=== PATIENT | female | born 1945 | race Caucasian/White ===

== ENCOUNTER 2023-05-02 16:29 | Inpatient (IN) | payer MEDICARE ==
[~2023-05-02 16:29] MED LIST: Iopamidol 370 76% 100 ML VIAL ONE
[2023-05-02] MEDS ORDERED: Magnesium 2 GM/50 ML BAG (IN WATER) ONE (16:49)
[2023-05-02 16:59] LABS: #Basophils 0.1 10x3/uL (0.0-0.2); #Eosinphils 0.4 10x3/uL (0.0-0.5); #Monocytes 0.8 10x3/uL (0.0-1.1); #Neutrophils 11.3 10x3/uL (1.5-8.4); %Basophils 0.4 % (0.0-2.0); %Eosinophils 2.9 % (0.0-6.0); %Lymphocytes 12.7 % (18.0-47.0); %Monocytes 5.2 % (0.0-10.0); %Neutrophils 78.3 % (40.0-75.0); Hemoglobin 13.5 g/dL (12.0-15.5); Mean Corpuscular HGB CONC 33.8 g/dL (32.0-36.0); Mean Corpuscular Hemoglobin 29.1 pg (27.0-33.0); Mean Corpuscular Volume 86.2 fl (81.6-98.3); Mean Platelet Volume 9.1 fl (7.4-10.4); Platelet Count 469 10x3/uL (150-450); RBC Distribution Width 12.6 % (11.5-14.5); Red Blood Cell (RBC) Count 4.64 10x6/uL (3.90-5.03); White Blood Cell (WBC) Count 14.5 10x3/uL (3.5-10.5)
[2023-05-02 17:20] LABS: ALT (SGPT) 13 U/L (8-55); AST (SGOT) 15 U/L (5-34); Albumin 4.2 g/dL (3.4-4.8); Alkaline Phosphatase 95 U/L (40-110); Anion Gap 15 mmol/L (10-20); BUN (Urea Nitrogen) 8 mg/dL (9.8-20.1); Bilirubin, Total 0.3 mg/dL (0.2-1.2); Calc. Creatinine Clearance 0 mL/min (70-130); Calcium 9.2 mg/dL (7.8-10.44); Carbon Dioxide 23 mmol/L (23-31); Chloride 103 mmol/L (98-107); Estimated GFR 65; Globulin 2.9 g/dL (2.4-3.5); Glucose 166 mg/dL (83-110); Potassium 3.8 mmol/L (3.5-5.1); Protein, Total 7.1 g/dL (5.8-8.1); Sodium 137 mmol/L (136-145)
[2023-05-02 17:28] LABS: SARS-CoV-2 NAA Rapid Test Not Detected (NotDetected)
[2023-05-02 17:45] LABS: CKMB 3.2 ng/mL (0-6.6)
[2023-05-02] MEDS ORDERED: Aspirin Chewable 81 MG TAB ONE (17:59)
[2023-05-02] MEDS ORDERED: Azithromycin 500 MG VIAL ONE (19:05)
[2023-05-02] MEDS ORDERED: Ondansetron PF 4 MG/2 ML Vial IVP PRN (19:09)
[2023-05-02] MEDS ORDERED: Guaifenesin DM 100-10/5 ML UDCUP PO PRN (19:09)
[2023-05-02] MEDS ORDERED: Acetaminophen 325 MG TAB PO PRN (19:09)
[2023-05-02] MEDS ORDERED: Senokot S 8.6-50 MG TAB PO PRN (19:09)
[2023-05-02] MEDS ORDERED: Calcium Carbonate 500 MG ChewTAB PO PRN (19:09)
[2023-05-02] MEDS ORDERED: Magnesium 2 GM/50 ML(in water) 2 GM in Premix Bag 1 BAG IVPB SCH (19:15)
[2023-05-02 19:47] LABS: Lactic Acid 2.5 mmol/L (0.5-2.2)
[2023-05-02] MEDS ORDERED: cefTRIAXone (ROCEPHIN) 1 GM VIAL ONE (20:09)
[2023-05-02] MEDS ORDERED: Zolpidem Tartrate 5 MG TAB PO PRN (21:00)
[2023-05-02 23:40] LABS: CKMB 3.4 ng/mL (0-6.6)
[2023-05-02] MEDS ORDERED: guaiFENesin ER 600 MG TAB PO SCH (23:45)
[2023-05-03 00:10] VITALS: BMI 27.1
[2023-05-03] MEDS: Metoprolol Tartrate 25 MG TAB PO SCH ×3 (00:14→20:36)
[2023-05-03] MEDS: Benzonatate 100 MG CAP PO SCH ×4 (00:15→20:36)
[2023-05-03] MEDS: Ipratropium/Albuterol 3 ML NEB NEB SCH ×5 (02:35→23:29)
[2023-05-03 05:09] LABS: #Monocytes 0.3 10x3/uL (0.0-1.1); #Neutrophils 6.6 10x3/uL (1.5-8.4); %Basophils 0.1 % (0.0-2.0); %Lymphocytes 11.9 % (18.0-47.0); %Neutrophils 83.4 % (40.0-75.0); Hemoglobin 12.4 g/dL (12.0-15.5); Mean Corpuscular HGB CONC 33.7 g/dL (32.0-36.0); Mean Corpuscular Hemoglobin 29.3 pg (27.0-33.0); Mean Platelet Volume 9.3 fl (7.4-10.4); Platelet Count 431 10x3/uL (150-450); RBC Distribution Width 12.8 % (11.5-14.5); Red Blood Cell (RBC) Count 4.23 10x6/uL (3.90-5.03)
[2023-05-03 05:22] LABS: Anion Gap 16 mmol/L (10-20); BUN (Urea Nitrogen) 7 mg/dL (9.8-20.1); Calc. Creatinine Clearance 71 mL/min (70-130); Calcium 9.1 mg/dL (7.8-10.44); Carbon Dioxide 24 mmol/L (23-31); Chloride 103 mmol/L (98-107); Estimated GFR 84; Glucose 143 mg/dL (83-110); Potassium 4.6 mmol/L (3.5-5.1); Sodium 138 mmol/L (136-145)
[2023-05-03 05:41] LABS: CKMB 3.6 ng/mL (0-6.6)
[2023-05-03] MEDS: methylPREDNISolone Sod Succ 40 MG VIAL IVP SCH ×2 (06:58→18:01)
[2023-05-03] MEDS: Mometasone/Formoterol 200/5 60 PUFF INH SCH ×2 (07:00→19:25)
[2023-05-03 08:14] LABS: Legionella Urinary Ag Negative (Negative); Strep pneumo Urine Ag NEGATIVE (NEGATIVE)
[2023-05-03] MEDS: Cefepime 2 GM in Sodium Chloride 0.9% 100 ML IVPB SCH ×2 (11:55→20:35)
[2023-05-03] MEDS: Aspirin 81 mg Enteric Coated Tablet PO SCH (12:02)
[2023-05-03] MEDS: guaiFENesin ER 600 MG TAB PO SCH ×2 (12:02→20:36)
[2023-05-03] MEDS: Citalopram 20 MG TAB PO SCH (12:02)
[2023-05-03] MEDS: Multivitamin W/ Minerals 1 TAB PO SCH (12:03)
[2023-05-03 12:53] LABS: Hemoglobin A1c 5.8 % (4.0-6.0)
[2023-05-03] MEDS: Ipratropium/Albuterol 3 ML NEB NEB PRN (15:50)
[2023-05-03] MEDS: Azithromycin 500 MG in Sodium Chloride 0.9% 250 ML 250 ML IVPB SCH (18:01)
[2023-05-03] MEDS ORDERED: VANCOMYCIN 1.25 GM/250 ML BAG 1.25 GM in Premix Bag 1 BAG IVPB SCH (18:45)
[2023-05-04] MEDS: Ipratropium/Albuterol 3 ML NEB NEB SCH (03:09)
[2023-05-04 05:24] LABS: #Monocytes 0.8 10x3/uL (0.0-1.1); #Neutrophils 13.9 10x3/uL (1.5-8.4); %Basophils 0.2 % (0.0-2.0); %Eosinophils 0.1 % (0.0-6.0); %Lymphocytes 13.7 % (18.0-47.0); %Monocytes 4.6 % (0.0-10.0); %Neutrophils 80.9 % (40.0-75.0); Hemoglobin 13.5 g/dL (12.0-15.5); Mean Corpuscular HGB CONC 33.7 g/dL (32.0-36.0); Mean Corpuscular Volume 86.2 fl (81.6-98.3); Mean Platelet Volume 8.9 fl (7.4-10.4); Platelet Count 485 10x3/uL (150-450); Red Blood Cell (RBC) Count 4.65 10x6/uL (3.90-5.03); White Blood Cell (WBC) Count 17.2 10x3/uL (3.5-10.5)
[2023-05-04 05:32] LABS: Lactic Acid 2.4 mmol/L (0.5-2.2)
[2023-05-04] MEDS: methylPREDNISolone Sod Succ 40 MG VIAL IVP SCH ×2 (05:34→18:17)
[2023-05-04 05:37] LABS: Anion Gap 17 mmol/L (10-20); BUN (Urea Nitrogen) 13 mg/dL (9.8-20.1); Calc. Creatinine Clearance 61 mL/min (70-130); Calcium 9.6 mg/dL (7.8-10.44); Carbon Dioxide 25 mmol/L (23-31); Chloride 100 mmol/L (98-107); Estimated GFR 70; Glucose 119 mg/dL (83-110); Magnesium 2.4 mg/dL (1.6-2.6); Potassium 4.3 mmol/L (3.5-5.1); Sodium 138 mmol/L (136-145)
[2023-05-04] MEDS: Ipratropium/Albuterol 3 ML NEB NEB PRN ×3 (07:05→15:00)
[2023-05-04] MEDS: Mometasone/Formoterol 200/5 60 PUFF INH SCH ×2 (07:10→19:20)
[2023-05-04] MEDS: Metoprolol Tartrate 25 MG TAB PO SCH ×2 (08:42→20:20)
[2023-05-04] MEDS: guaiFENesin ER 600 MG TAB PO SCH ×2 (08:43→20:18)
[2023-05-04] MEDS: Benzonatate 100 MG CAP PO SCH ×3 (08:43→20:18)
[2023-05-04] MEDS: Citalopram 20 MG TAB PO SCH (08:43)
[2023-05-04] MEDS: Cefepime 2 GM in Sodium Chloride 0.9% 100 ML IVPB SCH ×2 (08:43→20:18)
[2023-05-04] MEDS: Multivitamin W/ Minerals 1 TAB PO SCH (08:43)
[2023-05-04] MEDS: Aspirin 81 mg Enteric Coated Tablet PO SCH (08:45)
[2023-05-04] MEDS: Azithromycin 500 MG in Sodium Chloride 0.9% 250 ML 250 ML IVPB SCH (18:18)
[2023-05-05 04:12] LABS: #Monocytes 0.5 10x3/uL (0.0-1.1); #Neutrophils 9.6 10x3/uL (1.5-8.4); %Eosinophils 0.1 % (0.0-6.0); %Lymphocytes 13.5 % (18.0-47.0); %Monocytes 4.5 % (0.0-10.0); %Neutrophils 81.5 % (40.0-75.0); Hemoglobin 12.6 g/dL (12.0-15.5); Mean Corpuscular HGB CONC 33.5 g/dL (32.0-36.0); Mean Corpuscular Hemoglobin 28.4 pg (27.0-33.0); Mean Corpuscular Volume 84.9 fl (81.6-98.3); Platelet Count 441 10x3/uL (150-450); RBC Distribution Width 12.8 % (11.5-14.5); Red Blood Cell (RBC) Count 4.43 10x6/uL (3.90-5.03); White Blood Cell (WBC) Count 11.7 10x3/uL (3.5-10.5)
[2023-05-05 04:20] LABS: Anion Gap 14 mmol/L (10-20); BUN (Urea Nitrogen) 15 mg/dL (9.8-20.1); Calc. Creatinine Clearance 69 mL/min (70-130); Calcium 8.8 mg/dL (7.8-10.44); Carbon Dioxide 25 mmol/L (23-31); Chloride 102 mmol/L (98-107); Estimated GFR 81; Glucose 118 mg/dL (83-110); Potassium 4.3 mmol/L (3.5-5.1); Sodium 137 mmol/L (136-145)
[2023-05-05] MEDS: methylPREDNISolone Sod Succ 40 MG VIAL IVP SCH (05:56)
[2023-05-05] MEDS: Mometasone/Formoterol 200/5 60 PUFF INH SCH (06:30)
[2023-05-05 07:37] VITALS: BP 141/69; TEMP 97.9
[2023-05-05] MEDS ORDERED: Folic Acid 1 MG TAB PO SCH (09:00)
[2023-05-05] MEDS ORDERED: Thiamine 100 MG TAB PO SCH (09:00)
[2023-05-05] MEDS: Multivitamin W/ Minerals 1 TAB PO SCH (09:43)
[2023-05-05] MEDS: Cefepime 2 GM in Sodium Chloride 0.9% 100 ML IVPB SCH (09:43)
[2023-05-05] MEDS: Citalopram 20 MG TAB PO SCH (09:43)
[2023-05-05] MEDS: guaiFENesin ER 600 MG TAB PO SCH (09:43)
[2023-05-05] MEDS: Metoprolol Tartrate 25 MG TAB PO SCH (09:43)
[2023-05-05] MEDS: Aspirin 81 mg Enteric Coated Tablet PO SCH (09:44)
[2023-05-05] MEDS: Benzonatate 100 MG CAP PO SCH (09:44)
== END 2023-05-05 11:29 | disposition home or self-care (01) | DRG 871 ==
LOC: CSHERS 16:29 → CSHTELE 23:35
PROVIDERS: ADMIT Student in an Organized Health Care Education/Training Program; ATTEND Internal Medicine
DX: A41.9 Sepsis, unspecified organism (principal); J18.9 Pneumonia, unspecified organism; J96.21 Acute and chronic respiratory failure with hypoxia; J44.1 Chronic obstructive pulmonary disease with (acute) exacerbation; J44.0 Chronic obstructive pulmonary disease with (acute) lower respiratory infection; F41.9 Anxiety disorder, unspecified; K21.9 Gastro-esophageal reflux disease without esophagitis; I10 Essential (primary) hypertension; Z20.822 Contact with and (suspected) exposure to COVID-19; R73.9 Hyperglycemia, unspecified; Z99.81 Dependence on supplemental oxygen; Z88.5 Allergy status to narcotic agent; Z79.899 Other long term (current) drug therapy; Z90.710 Acquired absence of both cervix and uterus; Z98.890 Other specified postprocedural states; Z87.891 Personal history of nicotine dependence; Z85.9 Personal history of malignant neoplasm, unspecified; Z87.11 Personal history of peptic ulcer disease; Z71.6 Tobacco abuse counseling
CPT/HCPCS: 36415; 71045; 71275; 80048; 80053; 82553; 83036; 83605; 83735; 83880; 84145; 84484; 85025; 87040; 87077; 87149; 87449; 87899; 93005; 93306; 94640; 94664; 94760; 94762; J0456; J0692; J0696; J1650; J2405; J2920; J3475; J3490; J7050; J7611; J7620; Q9967

== ENCOUNTER 2023-06-09 00:51 | Emergency (ER) | payer MEDICARE ==
[2023-06-09 01:42] LABS: #Basophils 0.1 10x3/uL (0.0-0.2); #Eosinphils 0.7 10x3/uL (0.0-0.5); #Monocytes 0.5 10x3/uL (0.0-1.1); #Neutrophils 9.6 10x3/uL (1.5-8.4); %Basophils 0.8 % (0.0-2.0); %Eosinophils 5.7 % (0.0-6.0); %Lymphocytes 15.2 % (18.0-47.0); %Monocytes 3.6 % (0.0-10.0); %Neutrophils 74.3 % (40.0-75.0); Hemoglobin 11.4 g/dL (12.0-15.5); Mean Corpuscular HGB CONC 33.5 g/dL (32.0-36.0); Mean Corpuscular Volume 86.5 fl (81.6-98.3); Mean Platelet Volume 9.3 fl (7.4-10.4); Platelet Count 376 10x3/uL (150-450); RBC Distribution Width 12.4 % (11.5-14.5); Red Blood Cell (RBC) Count 3.93 10x6/uL (3.90-5.03); White Blood Cell (WBC) Count 12.9 10x3/uL (3.5-10.5)
[2023-06-09 01:48] LABS: ALT (SGPT) 10 U/L (8-55); AST (SGOT) 12 U/L (5-34); Alkaline Phosphatase 90 U/L (40-110); Anion Gap 17 mmol/L (10-20); BUN (Urea Nitrogen) 7 mg/dL (9.8-20.1); Bilirubin, Total 0.4 mg/dL (0.2-1.2); Calc. Creatinine Clearance 0 mL/min (70-130); Carbon Dioxide 23 mmol/L (23-31); Chloride 103 mmol/L (98-107); Estimated GFR 75; Globulin 2.4 g/dL (2.4-3.5); Glucose 113 mg/dL (83-110); Potassium 3.5 mmol/L (3.5-5.1); Protein, Total 6.4 g/dL (5.8-8.1); Sodium 139 mmol/L (136-145)
[2023-06-09] MEDS ORDERED: Ipratropium Bromide 2.5 ml Neb ONE (02:31)
== END 2023-06-09 02:54 | disposition home or self-care (01) ==
LOC: CSHERS 00:51
DX: J43.9 Emphysema, unspecified (principal); I10 Essential (primary) hypertension; Z87.891 Personal history of nicotine dependence
CPT/HCPCS: 36416; 71045; 80053; 85025; 94640; 94760; J7611